=== PATIENT | male | born 1950 | race Caucasian/White ===

== ENCOUNTER → 2017-08-26 | Outpatient (CLI) | payer MEDICARE, OTHER ==
[~2017-08-26] MED LIST: ANTIFUNGAL PO; ASPIRIN325 PO; Aspirin PO; CLEOCIN HCL300 MG PO; EFFIENT10 MG PO; FINASTERIDE5 MG PO; HYDROCODON-ACE1 EAC7 PO; HYDROCODON-ACE1 EACH PO; IBUPROFEN 600600 M1 PO; LIPITOR80 MG PO; LISINOPRIL2.5 MG PO; LOPRESSOR25 PO; NITROSTAT0.4 MG SL; OXYCODONE; OXYCONTIN10 M1; TRAMADOL 50 MG50 MG PO; VICODIN 5-5001 EACH PO; ZESTRIL5 MG PO
== END ==
LOC: M.ULTRA 09:50
DX: I70.0 Atherosclerosis of aorta (principal); G45.9 Transient cerebral ischemic attack, unspecified; R42 Dizziness and giddiness

== ENCOUNTER → 2017-09-07 | Outpatient (CLI) | payer MEDICARE, OTHER ==
--- NOTE | 2017-09-07 15:50 | 2DMMODE ---
[place] [address] 2 D/M-MODE ECHOCARDIOGRAM Name: ROBERTO GREENFIELD Room: [facility]#: [id number] Admission: 09/07/17 Attend Phys: Rodriguez Maldonado Discharge: Date of : 54 Date of Service: 09/07/17 1549 Report #: [id number] THIS REPORT FOR: //name// APPROVED REPORT Study performed: 09/07/2017 09:56:20 EXAM: Comprehensive 2D, Doppler, and color-flow Echocardiogram Patient Location: Out-Patient Status: routine BSA: 2.36 HR: 63 bpm BP: 130/78 mmHg Other Information Study Quality: Good Indications Dizziness and Vertigo CAD 2D Dimensions LVEF(%): 70.48 (>50%) IVSd: 12.81 (7-11mm) LVOT Diam: 20.57 (18-24mm) LVDd: 44.18 mm PWd: 11.58 (7-11mm) Ascending Ao: 31.43 (22-36mm) LVDs: 26.64 (25-40mm) Aortic Root: 29.00 mm Crabtree's LVEF: 70.48 % Volumes Left Atrial Volume (Systole) LA ESV Index: 15.60 mL/m2 Aortic Valve AoV Peak Torey.: 1.23 m/s AO Peak Gr.: 6.04 mmHg LVOT Max P.93 mmHg AO Mean Gr.: 3.62 mmHg LVOT Mean P.38 mmHg LVOT Max V: 0.86 m/s AO V2 VTI: 25.65 cm LVOT Mean V: 0.54 m/s NATALY (VTI): 2.51 cm2 LVOT V1 VTI: 19.34 cm Mitral Valve E/A Ratio: 1.01 [place] [address] 2 D/M-MODE ECHOCARDIOGRAM Name: ROBERTO GREENFIELD Room: [facility]#: [id number] Admission: 09/07/17 Attend Phys: Rodriguez Maldonado Discharge: Date of : 54 Date of Service: 09/07/17 1549 Report #: [id number] MV Decel. Time: 149.18 ms MV E Max Torey.: 0.69 m/s MV PHT: 43.26 ms MVA (PHT): 5.09 cm2 TDI E/Lateral E': 6.27 E/Medial E': 6.90 Medial E' Torey.: 0.10 m/s Lateral E' Torey.: 0.11 m/s Pulmonary Valve PV Peak Torey.: 1.04 m/s PV Peak Gr.: 4.29 mmHg Tricuspid Valve TR Peak Gr.: 17.47 mmHg RVSP: 22.47 mmHg Left Ventricle The left ventricle is normal size. There is normal LV segmental wall motion. Mild concentric left ventricular hypertrophy. Left ventricular systolic function is normal. The left ventricular ejection fraction is within the normal range. LVEF is 55-60%. The left ventricular diastolic function is normal. Right Ventricle The right ventricle is normal size. The right ventricular systolic function is normal. Atria The left atrium size is normal. The right atrium size is normal. Aortic Valve The aortic valve is normal in structure. No aortic regurgitation is present. There is no aortic valvular stenosis. Mitral Valve The mitral valve is normal in structure. Mild mitral regurgitation. No evidence of mitral valve stenosis. Tricuspid Valve The tricuspid valve is normal in structure. Mild tricuspid regurgitation. The RVSP is __22.5 mmHg. Pulmonic Valve The pulmonary valve is normal in structure. [place] [address] 2 D/M-MODE ECHOCARDIOGRAM Name: ROBERTO GREENFIELD [facility] [id number] Admission: 09/07/17 Attend Phys: Rodriguez Maldonado Discharge: Date of : 54 Date of Service: 09/07/17 1549 Report #: [id number] Great Vessels The aortic root is normal in size. IVC is normal in size and collapses with >50% inspiration Pericardium There is no pericardial effusion. <Conclusion> Mild concentric left ventricular hypertrophy. LVEF is 55-60%. Mild mitral regurgitation. <ELECTRONICALLY SIGNED> By: Lucas [place] MD, FACC 09/07/17 1549 1549 1549 Lucas [place] MD, FACC /INF
== END ==
LOC: M.CRD 09:41
DX: I08.1 Rheumatic disorders of both mitral and tricuspid valves (principal); I25.10 Atherosclerotic heart disease of native coronary artery without angina pectoris

== ENCOUNTER 2018-02-07 15:42 | Inpatient (IN) | payer MEDICARE, OTHER ==
[~2018-02-07] VITALS: Ht 180.3 cm; Wt 124.3 kg
[~2018-02-07 15:42] MED LIST changes: -ANTIFUNGAL PO; -FINASTERIDE5 MG PO; -HYDROCODON-ACE1 EAC7 PO; -IBUPROFEN 600600 M1 PO; -TRAMADOL 50 MG50 MG PO
[2018-02-07 15:44] VITALS: BP 135/70
[2018-02-07] MEDS ORDERED: FINASTERIDE5 MG PO (18:45)
[2018-02-07 19:49] VITALS: BP 136/45
[2018-02-07 19:55] VITALS: BP 144/78
--- NOTE | 2018-02-07 19:55 | NUR ---
PT ADMITTED TO FLOOR PER CART ACCOMPANIED BY ER STAFF AND FAMILY WITH BELONGINGS.ORIENTED TO ROOM AND CALL LITE. HISTORY REVIEWED, ASSESSMENT PERFORMED. PT STATES LFOOT AND ANKLE STARTING TO THROB AGAIN, WILL GIVE PAIN MED SCHEDULED. LAC SL FLUSHES EASILY. PT EATING MCDONALDS CHICKEN NUGGETS BROUGHT IN BY FRIENDS. ICE PACK PLACE TO [place] ORDERED. WILL CONTINUE TO MONITOR AND PROVIDE CARES NEEDED, CALL LITE IN EASY REACH AND BED ALARM ON FOR SAFETY.
--- NOTE | 2018-02-08 05:48 | NUR ---
NEW ADMIT LAST NIGHT. LLE WITH SPLINT AND DAGO WRAP BANDAGE IN PLACE, TOES PINK AND WARM, +MOVEMENT. AOX4, ABLE TO USE CALL LITE AND MAKE NEEDS KNOWN. ROOM AIR SAT 94%. ICE PACK TO LLE ORDERED, OFF AT PRESENT. LAC SL, IV PAIN MEDS GIVEN ORDERED. MORPHINE NOT EFFECTIVE AND NEW ORDER FOR DILAUDID WORKING MUCH BETTER FOR PAIN RELIEF. HAS BEEN NPO SINCE MIDNIGHT. ORTHO TO SEE PT TODAY. USIMG URINAL TO VOID WITHOUT DIFFICULTY. PLEASANT, WAITING TO SEE DR AND DISCUSS PLAN OF CARE.
[2018-02-08 08:00] VITALS: BP 148/81
[2018-02-08] MEDS ORDERED: IBUPROFEN 600600 M1 PO (10:34)
[2018-02-08] MEDS ORDERED: TRAMADOL 50 MG50 MG PO (10:34)
[2018-02-08] MEDS ORDERED: HYDROCODON-ACE1 EAC7 PO (10:34)
[2018-02-08 11:49] VITALS: BP 144/78
--- NOTE | 2018-02-08 14:35 | NUR ---
SPOKE WITH PT.AND . HE WAS ALERT AND ORIENTED. 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 PT.IS NWB TO L FOOT. 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 ORDER SENT TO P.T. THEY WILL DISPENSE A FWW PRIOR TO DISCHARGE TODAY. PT.ALSO INTERESTED IN KNEE SCOOTER. GAVE INFORMATION TO PT.AND REGARDING RENTAL OF THEM FROM [employer]. TOLD THEM OTHERS BUY THEM OFF [employer]. LOOKED UP PRICES AND STATED THEY CAN BUY ONE FOR $115. IT WOULD BE SHIPPED IN 2 DAYS. SHE SAID SHE COULD GET A WC FROM HER [facility].HOME FOR HIM TO USE IN THE MEANTIME. PT.TO BE DISCHARGED TODAY.
--- NOTE | 2018-02-08 15:51 | NUR ---
DISCHARGE ORDERS RECEIVED, DISCOMFORT MANAGED WELL WITH ORAL MEDICATION. IV ACCESS REMOVED W/O INCIDENT, DISCHARGE INSTRUCTIONS, F/U APPT, SCRIPTS DISCUSSED WITH PATIENT AND SPOUSE, DENY QUESTIONS AT THIS TIME. PERSONAL EFFECTS GATHERED, ACCOUNTED FOR, IN COMPANY WITH PATIENT. TRANSPORTED VIA WHEELCHAIR TO MAIN ENTRANCE IN STABLE CONDITION.
[2018-02-08 15:57] VITALS: BP 144/78
[2018-02-13] MEDS ORDERED: ANTIFUNGAL PO (12:02)
== END 2018-02-08 15:59 | disposition home or self-care (01) | DRG 563 ==
LOC: M.ERS 15:42 → M.3W 17:44 → M.TBA-ER 17:44 → M.3W 19:56
PROVIDERS: ADMIT Internal Medicine
DX: S92.902A Unspecified fracture of left foot, initial encounter for closed fracture (principal); Y99.8 Other external cause status; I10 Essential (primary) hypertension; W18.39XA Other fall on same level, initial encounter; I25.10 Atherosclerotic heart disease of native coronary artery without angina pectoris; E78.5 Hyperlipidemia, unspecified; I25.2 Old myocardial infarction; Z79.82 Long term (current) use of aspirin; Z79.899 Other long term (current) drug therapy; Z91.011 Allergy to milk products; Y93.89 Activity, other specified; Y92.89 Other specified places as the place of occurrence of the external cause

== ENCOUNTER → 2018-03-01 | Day surgery (SDC) | payer MEDICARE, OTHER ==
[~2018-03-01] VITALS: Ht 180.3 cm; Wt 117.9 kg
[~2018-03-01] MED LIST changes: +ANTIFUNGAL PO; +FINASTERIDE5 MG PO; +HYDROCODON-ACE1 EAC7 PO; +IBUPROFEN 600600 M1 PO; +TRAMADOL 50 MG50 MG PO
--- NOTE | ~2018-03-01 | OP ---
[address] [address] OPERATIVE REPORT Name: ROBERTO GREENFIELD Room: [facility]#: [id number] Admission: 03/01/18 Attend Phys: Nisreen Bond DO Discharge: Date of : 54 Report #: [id number] THIS REPORT FOR: //name// CC: Nisreen Pruitt DATE OF SERVICE: 03/01/2018 PREOPERATIVE DIAGNOSIS: Left foot Lisfranc injury. POSTOPERATIVE DIAGNOSIS: Left foot Lisfranc injury. 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 ANESTHESIA: General as well as 30 mL of 0.25% Marcaine with epinephrine. ESTIMATED BLOOD LOSS: 10 mL SPECIMENS: None. DRAINS: None. COMPLICATIONS: None. CONDITION: The patient is stable. DISPOSITION: PACU to home. ANTIBIOTICS: 2 g Ancef IV preoperatively. TOURNIQUET: 50 minutes at 250 mmHg. IMPLANTS: Arthrex meghan plate and 4 screws of appropriate size. INDICATIONS FOR PROCEDURE: The patient is a 67-year-old male who approximately 2 weeks ago, fell out of his hunting stand about 13 feet and landed directly on his left foot. He presented to [facility]. X-rays there showed a Lisfranc injury to the left foot. He was seen in my outpatient clinic and he had been too swollen up until just this past week to perform surgical fixation; however, his soft tissue envelope was amenable to surgery today, therefore I did recommend ORIF of the left Lisfranc injury. [facility] [address] [place] [address] OPERATIVE REPORT Name: ROBERTO GREENFIELD Room: [facility].#: [id number] Admission: 03/01/18 Attend Phys: Nisreen Bond DO Discharge: Date of : 54 Report #: [id number] risks, complications and alternatives of the procedure were discussed with the patient in detail. These include, but are not limited to, bleeding, surgical site infection, neurovascular compromise, malunion, nonunion, hardware failure, continued pain, posttraumatic arthritis, need for further surgery, DVT, PE as well as the inherent risks of anesthesia. The patient understands these risks and is agreeable to proceed. Consent was signed in preoperative holding area and on the chart at the time of surgery. DESCRIPTION OF PROCEDURE: The patient was brought to the operating room and placed supine on the operating table. He was administered general anesthetic. A well-padded tourniquet was then placed on the proximal portion of the left thigh. Left lower extremity was then sterilely prepped with chlorhexidine scrub, alcohol rinse, ChloraPrep x 2 and draped freely in the usual fashion. A timeout was performed confirming correct patient, site and procedure. Surgical site hoffmann were identified and all in the room were in agreement. The procedure began with localization of the Lisfranc joint. We exsanguinated the left lower extremity with an Esmarch and inflated the tourniquet to 250 mmHg. We then made an incision directly over the Lisfranc joint through skin. Dissection was carried through subcutaneous tissues with care to protect the neurovascular bundle. The periosteum was then cleared off of the bone surrounding the Lisfranc joint. The Lisfranc joint was then cleared of any fracture hematoma. There was noted to be gross instability at the Lisfranc joint as well as at the first TMT joint. We first stabilized the first TMT joint utilizing a 0.062 mm K-wire with an appropriate reduction. We then used a large [id number] bone clamp to compress across Lisfranc joint. X-rays were then taken at this time, which confirmed reduction of the Lisfranc joint and the rest of the TMT joints were evaluated as well, and there was noted to be no further instability throughout the mid foot. We then chose a medium sized meghan plate from the Arthrex set. This was placed onto bone in the appropriate position, held in place with 2 BB tacks. We then drilled, measured and filled the proximal medial screw hole with an appropriate sized 3.5 mm cortical nonlocking screw into the medial cuneiform. We then drilled across the base of the second metatarsal in an eccentric type fashion and filled this through with again an appropriate size 3.5 mm cortical nonlocking screw. The BB tacks were removed prior to fully seating the screw, which allowed compression across the Lisfranc joint and there was noted to be excellent fixation. We then drilled, measured and filled the remaining 2 holes with 3.5 mm locking screws. Final x-rays were then taken, which confirmed appropriate joint reduction and hardware placement and screw lengths were noted to be all appropriate. We then irrigated the wound with saline. Subcutaneous tissues were closed with 2-0 Vicryl suture in simple interrupted inverted fashion. Skin was reapproximated with 3-0 nylon suture. The large bone clamp and K-wire for provisional fixation had been removed as well. The wound was then dressed with Xeroform, 4 x 4s, ABD, soft roll and a well-padded posterior splint was applied. Tourniquet was let down at approximately 50 minutes. The patient tolerated the procedure well and was transferred to PACU in stable condition. Approximately 30 mL of local had been [address] [address] OPERATIVE REPORT Name: ROBERTO GREENFIELD Room: [facility].#: [id number] Admission: 03/01/18 Attend Phys: Nisreen Bond DO Discharge: Date of : 54 Report #: [id number] injected surrounding the incision prior to splint being placed. All needle and sponge counts were correct x 2, and I was present throughout all pertinent portions of the case. By: [id number] Bond DO /nt
--- NOTE | ~2018-03-01 | EKG ---
[place] [address] ELECTROCARDIOGRAM REPORT Name: ROBERTO GREENFIELD Room: [facility]#: [id number] Admission: 03/01/18 Attend Phys: Nisreen Robb DO Discharge: Date of : 54 Report #: [id number] THIS REPORT FOR: //name// 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
[2018-03-01 06:43] LABS: HEMOGLOBIN 13.5 gm/dL (14.0-18.0); MCH 31.1 pg (26.0-34.0); MCHC 33.7 g/dL (28.0-37.0); MCV 92.1 fL (80.0-100.0); MPV 7.4 fl. (7.2-11.1); RBC 4.34 mil/uL (4.50-6.00); RDW-CV 12.9 % (10.5-14.5); WBC 6.5 thou/uL (4.0-11.0)
[2018-03-01 06:55] LABS: CALCIUM 8.6 mg/dL (8.5-10.1); CREATININE 1.1 mg/dL (0.6-1.3); POTASSIUM 3.8 mmol/L (3.5-5.1)
[2018-03-01 06:58] LABS: ALBUMIN 3.6 g/dL (3.4-5.0)
[2018-03-01 07:09] LABS: TOTAL BILIRUBIN 0.4 mg/dL (<0.1-1.0); TOTAL PROTEIN 6.8 g/dL (6.4-8.2)
[2018-03-01 07:24] VITALS: BP 149/79
[2018-03-01 10:01] VITALS: BP 149/79
== END | disposition home or self-care (01) ==
LOC: M.SUR 06:08
PROVIDERS: Orthopaedic Surgery
DX: S93.325A Dislocation of tarsometatarsal joint of left foot, initial encounter (principal); Z91.018 Allergy to other foods; Z79.899 Other long term (current) drug therapy; Z79.82 Long term (current) use of aspirin; W19.XXXA Unspecified fall, initial encounter; Y93.89 Activity, other specified; Y92.89 Other specified places as the place of occurrence of the external cause; Y99.8 Other external cause status

== ENCOUNTER → 2018-08-10 | Outpatient (CLI) | payer MEDICARE, OTHER | LOC: M.MRI 13:20 | DX: S93.492A Sprain of other ligament of left ankle, initial encounter (principal); S93.412A Sprain of calcaneofibular ligament of left ankle, initial encounter; M93.272 Osteochondritis dissecans, left ankle and joints of left foot; M72.2 Plantar fascial fibromatosis; M25.772 Osteophyte, left ankle; M19.072 Primary osteoarthritis, left ankle and foot; M77.52 Other enthesopathy of left foot and ankle; X58.XXXA Exposure to other specified factors, initial encounter; Y93.89 Activity, other specified; Y92.89 Other specified places as the place of occurrence of the external cause; Y99.8 Other external cause status ==

== ENCOUNTER → 2018-10-20 | Day surgery (SDC) | payer MEDICARE, OTHER ==
[2018-10-20 06:35] LABS: HEMATOCRIT 41.5 % (42.0-52.0); HEMOGLOBIN 14.1 gm/dL (14.0-18.0); MCH 31.7 pg (26.0-34.0); MCV 93.4 fL (80.0-100.0); MPV 7.6 fl. (7.2-11.1); RBC 4.44 mil/uL (4.50-6.00); RDW-CV 13.2 % (10.5-14.5); WBC 10.3 thou/uL (4.0-11.0)
[2018-10-20 06:45] LABS: CALCIUM 8.8 mg/dL (8.5-10.1); CREATININE 1.1 mg/dL (0.6-1.3); POTASSIUM 3.8 mmol/L (3.5-5.1)
[2018-10-20 06:49] LABS: ALBUMIN 3.7 g/dL (3.4-5.0); TOTAL BILIRUBIN 0.5 mg/dL (<0.1-1.0); TOTAL PROTEIN 7.3 g/dL (6.4-8.2)
--- NOTE | 2018-10-20 09:20 | EKG ---
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
--- NOTE | 2018-10-31 14:51 | OP ---
[facility] [place] [address] OPERATIVE REPORT Name: ROBERTO GREENFIELD Room: [facility].#: [id number] Admission: 10/20/18 Attend Phys: Nisreen Robb DO Discharge: Date of : 54 Report #: [id number] THIS REPORT FOR: //name// [facility]: [facility] DICTATED BY: Mervin Marshall DO DATE OF SERVICE: 10/20/2018 PREOPERATIVE DIAGNOSES: 1. Left ankle pain and possible talar osteochondral defect. 2. Painful retained hardware, status post open reduction and internal fixation of left Lisfranc joint. POSTOPERATIVE DIAGNOSES/FINDINGS: Include: 1. Left ankle loose bodies and hypertrophic synovium. 2. Retained hardware, left Lisfranc joint. SURGEON: Nisreen Robb DO. APPEALS RN: Mervin Marshall DO. OPERATION PERFORMED: 1. Left ankle arthroscopy with removal of loose body and debridement of hypertrophic synovium. 2. Removal of left foot Lisfranc plate and screws (2 broken screws partially retained). 3. Intraoperative physician guided fluoroscopy less than 30 minutes. ANESTHESIA: General plus local infiltration. ESTIMATED BLOOD LOSS: 10 mL. SPECIMENS REMOVED: None. COMPLICATIONS: None. DRAINS: None. ANTIBIOTICS: 2 grams IV Ancef given preoperatively. Tourniquet was approximately 50 minutes at 250 mmHg. IMPLANTS REMOVED: Arthrex Lisfranc plate, 2-hole screws and 2 partially screws. [place] [address] OPERATIVE REPORT Name: ROBERTO GREENFIELD Room: [facility].#: [id number] Admission: 10/20/18 Attend Phys: Nisreen Robb DO Discharge: Date of : 54 Report #: [id number] OPERATIVE INDICATIONS: The patient is a pleasant 68-year-old male who we have been following in the clinic since he had an injury several months ago to his left foot. He was diagnosed with a Lisfranc injury and this was treated with open reduction and internal fixation of the Lisfranc joint with a plate and screw construct. The patient went on to do well and healed from his injury; however, he did have continued pain from the retained implant. The patient also did complain of a new complaint of medial-sided ankle pain. We had an MRI, which showed chronic ligamentous damage as well as a possible osteochondral defect in the talus. We discussed with him his treatment options including removal of the plate and screws as well as ankle arthroscopy with possible microfracture of any osteochondral defects and all other indicated procedures. Risks, indications, and treatment alternatives were reviewed with him in good detail in the office setting and the patient showed good understanding. He did elect to proceed with the operation as planned today and his informed consent was signed. DESCRIPTION OF PROCEDURE: The patient was identified in the preoperative holding area where the left ankle was confirmed by the patient and the operative site marked. He was transferred to the operating suite and placed on the operating table in the supine position, where general anesthesia was then induced. A well-padded tourniquet was placed on the left proximal thigh. The left lower extremity was then sterilely prepped and draped with ChloraPrep and draped free. Timeout was performed to confirm that our safety checklist had been completed and all of the OR personnel was in agreement. The Arthrex distractor was applied to the left ankle to provide distention of the tibiotalar joint. A standard anteromedial and anterolateral portal sites were marked out. The ankle joint was injected with approximately 7 mL of sterile saline to distend the joint. A scalpel was used to dissect the skin and the soft tissues were spread to the level of the joint capsule. The arthroscope was then introduced into the anteromedial portal and a full diagnostic arthroscopy was performed with the above-mentioned findings. The anterolateral portal was then established under direct visualization using a needle to confirm correct position and trajectory. The same marybel and spread technique was used to establish the portal site. The arthroscopic shaver was then introduced and utilized to perform the removal of the loose bodies from the tibiotalar joint. There was found to be hypertrophic synovium in the medial and lateral gutters and the arthroscopic shaver was also used to excise this. There was some loose cartilage flap on the most medial aspect of the talus of the tibiotalar joint. This was debrided as well. Overall, remaining cartilage was intact with no significant osteochondral defect. The arthroscopic instruments were then removed and excess fluid was pumped from the ankle. The portal sites were closed with simple interrupted 3-0 nylon sutures. We then proceeded to the next portion of the procedure with removal of the deep implants. The previous surgical incision on the dorsum of the foot was utilized. Sharp dissection was carried down through the skin and subcutaneous tissue. There is noted to be [facility] [address] [place] [address] OPERATIVE REPORT Name: ROBERTO GREENFIELD Room: [facility]#: [id number] Admission: 10/20/18 Attend Phys: Nisreen Robb DO Discharge: Date of : 54 Report #: [id number] significant scarring. The extensor hallucis longus was identified and protected as was the neurovascular structures, which were enveloped in scar tissue. Dissection was carried down until the plate was encountered and this was freed from all the soft tissue attachments. The screws were sequentially removed with the screwdriver, two of the screws were noted to be broken in half and the deep portions were left within the bone. The plate was then freed from the bone utilizing a [place] and was removed. The wound was then thoroughly irrigated. Intraoperative fluoroscopy was used to confirm that the plate and screws had been removed except for the 2 partial screws, which were retained and deemed to be stable. The wound was thoroughly irrigated. The subcutaneous tissue was closed with simple buried 2-0 Vicryl sutures. Skin was reapproximated and held together with 3-0 simple interrupted nylon sutures. Sterile bandage was then applied of Xeroform, 4 x 4's, Kerlix and an Miguel bandage. Sponge and needle counts were correct x 2 by the OR personnel. A postop shoe was applied. The patient was then taken to the PACU in stable condition. No apparent complications. <ELECTRONICALLY SIGNED> By: Nisreen Robb DO 10/31/18 1451 0918 1004Angshekhar Robb DO /nt
== END | disposition home or self-care (01) ==
LOC: M.SUR 05:48
PROVIDERS: Orthopaedic Surgery
DX: M67.272 Synovial hypertrophy, not elsewhere classified, left ankle and foot (principal); T84.84XA Pain due to internal orthopedic prosthetic devices, implants and grafts, initial encounter; M24.072 Loose body in left ankle; M25.572 Pain in left ankle and joints of left foot; E78.5 Hyperlipidemia, unspecified; I25.2 Old myocardial infarction; Z98.890 Other specified postprocedural states; Z79.899 Other long term (current) drug therapy; Z79.891 Long term (current) use of opiate analgesic; Y83.8 Other surgical procedures as the cause of abnormal reaction of the patient, or of later complication, without mention of misadventure at the time of the procedure; Z87.891 Personal history of nicotine dependence

== ENCOUNTER → 2019-04-19 | Outpatient (CLI) | payer MEDICARE, OTHER ==
[2019-04-19 13:28] LABS: CALCIUM 8.3 mg/dL (8.5-10.1); CREATININE 1.2 mg/dL (0.6-1.3); POTASSIUM 4.5 mmol/L (3.5-5.1)
== END ==
LOC: M.LAB 12:10 → M.CT 14:00
PROVIDERS: Nurse Practitioner Family
DX: R91.1 Solitary pulmonary nodule (principal); F17.200 Nicotine dependence, unspecified, uncomplicated